=== PATIENT | male | born 1950 | race Hispanic/Latino ===

== ENCOUNTER 2024-12-08 22:02 | Emergency (ER) | payer OTHER ==
[~2024-12-08] VITALS: Ht 175.3 cm; Wt 136.1 kg
[~2024-12-08 22:02] MED LIST: ASPI-1443 PO; FAMO-136 PO; FURO20TA4 PO; GLIP5POW MC; HYDR25TA PO; HYDR50TA37 PO; LOSA-418 PO; METO50 PO; OMEP20CA12 PO; POTA20PA32 PO; SIMV10TA97 PO
--- NOTE | 2024-12-08 22:07 | NUR ---
REPORT TO MEGHAN ISLAS
--- NOTE | 2024-12-08 22:35 | ERN ---
ED Note History of Present Illness Stated Complaint: CHEST PAIN Chief Complaint: Chest Pain Time Seen by MD: 22:27 Time Seen by Midlevel: 22:30 Dictation: Mr. Banegas is a 74 year gentleman with history of atrial fibrillation, hypertension, hyperlipidemia, CVA, CAD, heart valve replacement, type 2 diabetes, CHF, GERD, and morbid obesity who presented to the emergency department this evening for evaluation of chest pain. He states that he was attending a wedding this evening when he developed anterior chest pain radiating to the back and neck and accompanied by shortness of breath. He reports chronic swelling of his lower extremities. He states that while in route to the hospital symptoms resolve. 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 He denies having any fever, chills, cough, palpitations, abdominal pain, nausea, vomiting, diarrhea, dysuria, focal weakness/paresthesia, or dizziness. PCP: Dr. Nelly Bone Campaign Director: Dr. Oral Jordan Allergies: Coded Allergies: No Known Allergies (Unverified Allergy, Unknown, 10/23/22) Home Meds Active Scripts Losartan Potassium (Cozaar) 50 Mg Tablet, 50 MG PO DAILY, #30 TAB 0 Refills Prov:ELMIRA GREEN MD 10/28/22 Metoprolol Tartrate (Lopressor 50Mg Tab) 50 Mg Tab, 50 MG PO BID, #60 TAB 0 Refills Prov:ELMIRA GREEN MD 10/28/22 Reported Medications Glipizide (Glipizide) 5 Gm Powder, 2.5 GM MC BID, APPL 10/23/22 Hydralazine HCl (Hydralazine HCl) 50 Mg Tablet, 50 MG PO QID, TAB 10/23/22 Omeprazole (Omeprazole) 20 Mg Capsule.dr, 20 MG PO DAILY, CAP 10/23/22 Hydrochlorothiazide (Hydrochlorothiazide) 25 Mg Tablet, 25 MG PO DAILY, TAB 10/23/22 Aspirin (Aspirin EC) 81 Mg Tablet.dr, 81 MG PO DAILYDINNER, TAB 10/23/22 Furosemide (Furosemide) 20 Mg Tablet, 20 MG PO DAILY, TAB 10/23/22 Famotidine (Pepcid) 20 Mg Tablet, 10 MG PO DAILY, TAB 10/23/22 Potassium Chloride (Potassium Chloride) 20 Meq Packet, 20 MEQ PO DAILY, PKT 10/23/22 Simvastatin (Simvastatin) 10 Mg Tablet, 10 MG PO DAILYDINNER, TAB 10/23/22 Past Medical History Past Medical History: A-Fib, CVA, Diabetes-Type II, High Cholesterol, Hypertension Surgical History: Other Surgical History Other: VALCE REPLACEMENT PSYCH History: no pertinent psych hx Social History: Negative, Lives with family RN Note Reviewed/Agreed w/PFSH: Yes Review of System Dictation REVIEW OF SYSTEMS: CONSTITUTIONAL: Patient denies fevers, chills, sweats and weight changes. Reports fatigue and general weakness EYES: Patient denies any visual symptoms. EARS, NOSE, AND THROAT: No difficulties with hearing. No symptoms of rhinitis or sore throat. CARDIOVASCULAR: Patient denies palpitations, orthopnea and paroxysmal nocturnal dyspnea. Reported chest pain radiating to his back and neck. RESPIRATORY:no wheezing or cough. Reported shortness of breath GI: No nausea, vomiting, diarrhea, constipation, abdominal pain, hematochezia or melena. : No urinary hesitancy or dribbling. No nocturia or urinary frequency. No abnormal urethral discharge. MUSCULOSKELETAL: No myalgias or arthralgias. Reports chronic swelling of lower extremities NEUROLOGIC: No chronic headaches, no seizures. Patient denies numbness, tingling or weakness. PSYCHIATRIC: Patient denies problems with mood disturbance. No problems with anxiety. ENDOCRINE: No excessive urination or excessive thirst. DERMATOLOGIC: Patient denies any rashes or skin changes. Initial Vital Sign VS Vital Signs Date Time Temp Pulse Resp B/P (MAP) Pulse Ox O2 Delivery O2 Flow Rate FiO2 12/08/24 22:04 98.2 105 20 236/110 96 Room Air 12/08/24 22:51 0 21 Physical Exam Dictation Vital signs: Reviewed. Afebrile Constitutional: No acute distress. Non-toxic appearing. Significant other at bedside Head/Face: Normocephalic, atraumatic. Eyes: Periorbital areas with no swelling, redness, or edema. Lids and lashes are normal. Conjunctival injection is absent. Sclera anicteric. Pupils equal, round, reactive to light. ENT: Pinnas intact and no signs of trauma or erythema. Ear canals clear and no discharge. TMs no erythema. No nasal discharge or bleeding noted. Oropharynx with no exudate, redness, swelling, masses, exudates, or evidence of obstructio n. Uvula midline. Mucous membranes moist. Missing teeth. Neck: Trachea midline, no masses palpated, and no cervical lymphadenopathy. No swelling. Supple, full range of motion. Chest/Axilla: No tenderness, no crepitus, no paradoxical movement, no retrac tions. Cardiovascular: Irregular rate, regular rhythm, no murmur, no gallops. Symmetric pulses. 2+ pedal edema Twelve lead EKG reflects a atrial fibrillation with ventricular rate 82. Hypertensive with blood pressure reading 236/110 Respiratory: Tachypneic; RR 24 lung sounds diminished in bases with slight expiratory wheeze; no rales or rhonchi. Room air SpO2 98% Gastrointestinal: Obese No distention is appreciated. Bowel sounds are normal. No mass or organomegaly . There is no tenderness. No rebound. No rigidity. No voluntary or involuntary guarding. No Bey's sign. Neurological: Normal speech, gross motor function intact, gross sensory function intact. No focal weakness/Paresthesia. Musculoskeletal/Extremities: All extremities have full range of motion, no pain or tenderness on palpation. Symmetric pulses. Integumentary: Intact. Skin is normal color, warm and dry. Cap refill less than 3 seconds. Results (Laboratory/Radiology) Laboratory/Radiology Laboratory Tests Test 12/08/24 22:27 12/08/24 22:46 12/08/24 22:58 White Blood Count 7.2 K/uL (4.8-10.8) Red Blood Count 4.33 MIL/uL (4.50-6.20) L Hemoglobin 11.7 g/dL (14.0-18.0) L Hematocrit 37.5 % (42-54) L Mean Corpuscular Volume 86.6 fL (79-99) Mean Corpuscular Hemoglobin 27.0 pg (27.0-33.0) Mean Corpuscular Hemoglobin Concent 31.2 g/dL (32.0-36.0) L Red Cell Distribution Width 18.1 % (11.0-15.5) H Platelet Count 189 K/uL (130-400) Mean Platelet Volume 11.3 fL (7.5-10.5) H Immature Granulocyte % (Auto) 0.3 % (0-1) Neutrophils (%) (Auto) 63.2 % (40.0-77.0) Lymphocytes (%) (Auto) 22.4 % (21.0-51.0) Monocytes (%) (Auto) 10.2 % (3.0-13.0) Eosinophils (%) (Auto) 3.1 % (0.0-8.0) Basophils (%) (Auto) 0.8 % (0.0-5.0) Neutrophils # (Auto) 4.5 K/uL (1.8-7.7) Lymphocytes # (Auto) 1.6 K/uL (1.0-4.8) Monocytes # (Auto) 0.7 K/uL (0.1-1.0) Eosinophils # (Auto) 0.22 K/uL (0.00-0.70) Basophils # (Auto) 0.06 K/uL (0.00-0.20) Absolute Immature Granulocyte (auto 0.02 K/uL (0-1) Nucleated Red Blood Cells 0.0 % (0.0-0.19) Red Blood Cell Morphology See comments Sodium Level 141 mmol/L (136-145) Potassium Level 3.7 mmol/L (3.5-5.1) Chloride Level 107 mmol/L (101-111) Carbon Dioxide Level 29 mmol/L (21-32) Blood Urea Nitrogen 24 mg/dL (7-18) H Creatinine 1.4 mg/dL (0.5-1.3) H Glomerular Filtration Rate Calc 52 mL/min (>90) Random Glucose 122 mg/dL (70-105) H Total Calcium 8.8 mg/dL (8.5-10.1) Total Creatine Kinase 119 U/L (21-232) Troponin I High Sensitivity 16 ng/L (4-75) B-Type Natriuretic Peptide 138 pg/mL (0-100) H Urine Color LIGHT-YELLOW (YELLOW) Urine Appearance CLEAR (CLEAR) Urine pH 5.5 (5.0-8.0) Urine Specific [place] 1.015 (1.001-1.031) Urine Protein 30 mg/dL (NEGATIVE) H Urine Glucose (UA) >=1000 mg/dL (NEGATIVE) H Urine Ketones NEGATIVE mg/dL (NEGATIVE) Urine Occult Blood NEGATIVE (NEGATIVE) Urine Nitrate NEGATIVE (NEGATIVE) Urine Bilirubin NEGATIVE mg/dL (NEGATIVE) Urine Urobilinogen 0.2 mg/dL (0.2-1.0) Urine Leukocyte Esterase NEGATIVE Edita/uL Urine RBC 2-5 /HPF (0-1) H Urine WBC 0-1 /HPF (0-1) Urine Squamous Epithelial Cells RARE /HPF (0-2) Urine Bacteria None /HPF (None Seen) Troponin I < 0.05 ng/mL (0.00-0.05) Labs Reviewed?: Yes EKG Comment: EKG Interpretation: Time Reviewed: 2201 Ventricular rate: 82 bpm NV Interval: [] ms QRS duration: [address] segment elevation or depression. Clinical impression: Atrial fibrillation EKG Reviewed and interpreted by Dr. Rosie Chicas EKG Interpretation: Time Reviewed: 32 Ventricular rate: 91 bpm NV Interval: QRS duration: [address] segment elevation or depression. Clinical impression: Atrial fibrillation EKG Reviewed and interpreted by Dr. Rosie Chicas X-RAY Comment: PATIENT: SHAWANDA BANEGAS MR#: [id number] : 1950 SEX: M AGE: 74 LOCATION: [facility] ORDER 04 STATUS: REG ER REPORT#: [id number] SERVICE 03 REASON: CHEST PAIN ORDERING PHYSICIAN: KENRICK CHICAS MD PROCEDURE: CXR1VW - CHEST 1VW CHEST 1VW HISTORY: Chest pain COMPARISON: 10/22/2022 FINDINGS: A frontal projection of the chest was obtained. Elevation of left hemidiaphragm is again seen. Prominent interstitial markings are seen with possible superimposed infiltrates. The heart is borderline enlarged. No evidence of aortic calcification is seen. IMPRESSION: 1. Prominent interstitial markings are seen with possible superimposed infiltrates. DICTATED BY: CUAUHTEMOC DUKE MD DATE: 12/08/242256 ELECTRONICALLY SIGNED BY: CUAUHTEMOC DUKE MD DATE: 12/08/242300 ED Course ED Course Orders Procedure Category Date Status Time Vital Signs Per CPOE 12/08/24 Transmitted Routine 22:04 B-Type Natriuretic LAB 12/08/24 Complete Peptide 22:04 Chest 1vw RAD 12/08/24 Resulted 22:04 12 Lead Ekg Tracing- EKG 12/08/24 Logged Technical 22:04 Oxygen By Nc/Pulse Ox CPOE 12/08/24 Transmitted 22:04 Maintain Iv CPOE 12/08/24 Transmitted 22:04 Iv Insertion CPOE 12/08/24 Transmitted 22:04 Cardiac Monitoring CPOE 12/08/24 Transmitted 22:04 Pulse Oximetry With CPOE 12/08/24 Transmitted Vs And Prn 22:04 Cbc With Differential LAB 12/08/24 Complete 22:04 Activity: Br W/Brp CPOE 12/08/24 Transmitted With Assist 22:04 Creatine Kinase, Total LAB 12/08/24 Complete 22:04 Troponin I High LAB 12/08/24 Complete Sensitivity 22:04 Urinalysis Profile LAB 12/08/24 Complete 22:04 Troponin Poc Order LAB 12/08/24 Complete Only 22:04 Bedside Troponin-I LAB.ER 12/08/24 In Process (Poc) 22:04 Basic Metabolic Panel LAB 12/08/24 Complete 22:04 Troponin I High LAB 12/09/24 In Process Sensitivity 00:30 12 Lead Ekg Tracing- EKG 12/09/24 Complete Technical 00:30 Vital Signs Date Time Temp Pulse Resp B/P (MAP) Pulse Ox O2 Delivery O2 Flow Rate FiO2 12/09/24 00:41 98.4 82 18 144/58 98 Room Air* 0 21 12/08/24 22:51 97.9 78 18 149/63 97 Room Air* 0 21 12/08/24 22:04 98.2 105 20 236/110 96 Room Air Uneventful ED course. Initial blood pressure was elevated to 236/110 but repeat measurements all normotensive. Twelve lead EKG performed x2 reveals atrial fibrillation per baseline with ventricular rates 60-80; no ST elevation or depression. Laboratory findings as noted below H&H are stable 11.7/37.5, BUN/CR 24/1.4, glucose 122, and BNP 138. UA positive for protein and glucose. Troponin x2 are negative. He has been chest pain-free and denies shortness of breath or concerns throughout stay. Findings were discussed with patient and his significant other. He was provided with copies of his EKGs, chest x-ray report, and labs. He will follow up with his PCP early next week. HEART Score Response (Comments) Value History: Moderate suspicion (+1) 1 EKG: Normal 0 Age: > 65yrs (+2) 2 Risk Factors: 3+ risk factors (+2) 2 Initial Troponin: Normal limit (0) 0 HEART Score Risk: Mod Risk for MACE (4-6) Total 5 Medical Decision Making MDM MDM: Differential diagnosis: ACS, CAP, anxiety Rationale: Tests considered and ordered secondary to shared decision making include: EKG, LABS, CXR Previous outside records reviewed: Old ER visits. Risk of complication and/or morbidity or mortality of patient management: None Medications-Per medication reconciliation Need for hospitalization: Patient does not meet criteria for hospitalization. Need for emergency major/minor surgery: No There are no social concerns with this patient. Prescription drug management: N/A; continue home medications Prescriptions will include symptomatic care Patient's prior external medical records from other ER visits were reviewed by me as indicated. Prior testing and results from previous visits were reviewed. Prior tests were taken into account with medical decision making and resource utilization, independent historian/historians were used to obtain complete medical history. I independently interpreted the test that were performed, results were reviewed by me and considered findings on radiology if ordered. Medical management and examination interpretation discussions were had by me with other qualified healthcare professionals as indicated for the patient's car e. DX & DISP Disposition: Discharge Departure Impression: Primary Impression: Chest pain Additional Impression: Hypertension Condition: Stable Additional Instructions: Rest. Keep log of all symptoms. Keep log of blood pressure readings. Continue all home medications. Follow up with Dr.Luna Bone early next week; take copies of your labs/EKGs/CXR. Please return to the emergency department for any worsening of symptoms or concerns. Referrals: ORAL JORDAN MD, CYNTHIA N MD Time of Disposition: 00:49 JACINDA CROWELL NP Dec 08, 2024 22:35
[2024-12-08 22:44] LABS: BASOPHILS # (AUTO) 0.06 K/uL (0.00-0.20); BASOPHILS % (AUTO) 0.8 % (0.0-5.0); EOSINOPHILS # (AUTO) 0.22 K/uL (0.00-0.70); EOSINOPHILS % (AUTO) 3.1 % (0.0-8.0); HEMATOCRIT 37.5 % (42-54); IMMATURE GRANULOCYTE ABSOLUTE 0.02 K/uL (0-1); LYMPHOCYTES # (AUTO) 1.6 K/uL (1.0-4.8); LYMPHOCYTES % (AUTO) 22.4 % (21.0-51.0); MEAN CORPUSCULAR HGB CONC 31.2 g/dL (32.0-36.0); MEAN CORPUSCULAR VOLUME 86.6 fL (79-99); MONOCYTES # (AUTO) 0.7 K/uL (0.1-1.0); MONOCYTES % (AUTO) 10.2 % (3.0-13.0); NEUTROPHILS # (AUTO) 4.5 K/uL (1.8-7.7); NEUTROPHILS % (AUTO) 63.2 % (40.0-77.0); PLATELET COUNT (AUTO) 189 K/uL (130-400); RED BLOOD CELL COUNT(AUTO) 4.33 MIL/uL (4.50-6.20); RED CELL DISTRIBUTION WIDTH 18.1 % (11.0-15.5); WHITE BLOOD COUNT (AUTO) 7.2 K/uL (4.8-10.8)
[2024-12-08 23:00] LABS: CREATININE 1.4 mg/dL (0.5-1.3); POTASSIUM 3.7 mmol/L (3.5-5.1)
--- NOTE | 2024-12-08 23:01 | HMCIMG ---
CHEST 1VW HISTORY: Chest pain COMPARISON: 10/22/2022 FINDINGS: A frontal projection of the chest was obtained. Elevation of left hemidiaphragm is again seen. Prominent interstitial markings are seen with possible superimposed infiltrates. The heart is borderline enlarged. No evidence of aortic calcification is seen. IMPRESSION: 1. Prominent interstitial markings are seen with possible superimposed infiltrates.
[2024-12-08 23:08] LABS: APPEARANCE,URINE CLEAR (CLEAR); BILIRUBIN,URINE NEGATIVE (NEGATIVE); COLOR,URINE LIGHT-YELLOW (YELLOW); GLUCOSE, URINE (UA) >=1000 mg/dL (NEGATIVE); KETONES,URINE NEGATIVE (NEGATIVE); LEUKOCYTE ESTERASE ,URINE NEGATIVE Leu/uL (NEGATIVE); NITRATE,URINE NEGATIVE (NEGATIVE); OCCULT BLOOD,URINE NEGATIVE (NEGATIVE); PH,URINE 5.5 (5.0-8.0); PROTEIN,URINE 30 mg/dL (NEGATIVE); UROBILINOGEN,URINE 0.2 mg/dL (0.2-1.0)
[2024-12-08 23:09] LABS: ADD UA MICROSCOPIC YES
[2024-12-08 23:14] LABS: SQUAMOUS EPITHELIAL CELL,UR RARE /HPF (0-2); WBC,URINE 0-1 /HPF (0-1)
[2024-12-08 23:25] LABS: B-TYPE NATRIURETIC PEPTIDE 138 pg/mL (0-100)
--- NOTE | 2024-12-09 00:40 | EKG ---
[facility] Test Date: 2024-12-09 Test Time: 00:33:40 Pat Name: SHAWANDA ALVA Department: [facility] Room: Gender: M Bookkeeping Manager: [id number] : 1950 Requested By: KENRICK PADRON Order Number: [id number] Reading MD: Geraldo Pacheco Measurements Intervals [place] Rate: 91 P: 0 DC: 0 QRS: 91 QRSD: 102 T: 2 QT: 387 QTc: 477 Interpretive Statements Atrial fibrillation Right axis deviation Anteroseptal infarct, old Compared to ECG 10/27/2022 21:34:55 Right-axis deviation now present Myocardial infarct finding now present Electronically Signed On 12-10-2024 16:03:36 HOUSEHOLD APPLIANCE ASSEMBLER by Geraldo Pacheco Please click the below link to view image of tracing.
[2024-12-09 00:41] VITALS: TEMP 98.5
[2024-12-09 01:32] VITALS: BP 131/67; PULSE 85; RESP 18; O2SAT 97
--- NOTE | 2024-12-09 01:32 | EKG ---
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
== END 2024-12-09 01:48 | disposition home or self-care (01) ==
LOC: EDH 22:02
DX: R07.89 Other chest pain (principal); I10 Essential (primary) hypertension; I48.91 Unspecified atrial fibrillation; E11.9 Type 2 diabetes mellitus without complications; E78.00 Pure hypercholesterolemia, unspecified; Z79.84 Long term (current) use of oral hypoglycemic drugs; Z79.899 Other long term (current) drug therapy; Z86.73 Personal history of transient ischemic attack (TIA), and cerebral infarction without residual deficits
CPT/HCPCS: 36415; 71045; 80048; 81001; 82550; 83880; 84484; 85025; 93005; 99284

== ENCOUNTER 2025-06-08 12:23 | Emergency (ER) | payer OTHER ==
[~2025-06-08] VITALS: Ht 175.3 cm; Wt 138.3 kg
[2025-06-08] MEDS: ORPHENADRINE 60MG/2ML IM ONE (12:55)
--- NOTE | 2025-06-08 13:00 | ERN ---
ED Note History of Present Illness Stated Complaint: RIGHT LEG PAIN Chief Complaint: Lower Extremity Pain/Injury Time Seen by MD: 12:24 Time Seen by Midlevel: 12:24 Dictation: The patient is a see showed male with a history of AFib on Eliquis, hyperlip idemia, hypertension who presents to the emergency department with nontraumatic right hip pain that radiates down his right leg onset a week ago. Patient reports pain is a by his right buttocks. Denies any numbness to lower extremities, denies any urinary or fecal incontinence. Denies any fevers or any other associated symptoms. Allergies: Coded Allergies: No Known Allergies (Unverified Allergy, Unknown, 10/23/22) Home Meds Active Scripts Hydrocodone/Acetaminophen (Hydrocodon-Acetaminoph 7.5-325) 7.5 Mg-325 Mg Tablet, 1 EACH PO TID PRN for PAIN for 10 Days, #20 TAB Prov:CATINA MARIN DO 06/08/25 Hydrocodone/Acetaminophen (Hydrocodon-Acetaminophen 5-325) 5 Mg-325 Mg Tablet, 1 TAB PO [id number] PRN for pain for 5 Days, #10 TAB 0 Refills Prov:ELIZABETH BERMAN 06/08/25 Meloxicam (Meloxicam) 7.5 Mg Tablet, 1 TAB PO DAILY for 10 Days, #10 TAB 0 Refills Prov:ELIZABETH BERMAN 06/08/25 Losartan Potassium (Cozaar) 50 Mg Tablet, 50 MG PO DAILY, #30 TAB 0 Refills Prov:ELMIRA GREEN MD 10/28/22 Metoprolol Tartrate (Lopressor 50Mg Tab) 50 Mg Tab, 50 MG PO BID, #60 TAB 0 Refills Prov:ELMIRA GREEN MD 10/28/22 Reported Medications Glipizide (Glipizide) 5 Gm Powder, 2.5 GM MC BID, APPL 10/23/22 Hydralazine HCl (Hydralazine HCl) 50 Mg Tablet, 50 MG PO QID, TAB 10/23/22 Omeprazole (Omeprazole) 20 Mg Capsule.dr, 20 MG PO DAILY, CAP 10/23/22 Hydrochlorothiazide (Hydrochlorothiazide) 25 Mg Tablet, 25 MG PO DAILY, TAB 10/23/22 Aspirin (Aspirin EC) 81 Mg Tablet.dr, 81 MG PO DAILYAGUSTINA TAB 10/23/22 Furosemide (Furosemide) 20 Mg Tablet, 20 MG PO DAILY, TAB 10/23/22 Famotidine (Pepcid) 20 Mg Tablet, 10 MG PO DAILY, TAB 10/23/22 Potassium Chloride (Potassium Chloride) 20 Meq Packet, 20 MEQ PO DAILY, PKT 10/23/22 Simvastatin (Simvastatin) 10 Mg Tablet, 10 MG PO DAILYDINNER, TAB 10/23/22 Past Medical History Past Medical History: A-Fib, CVA, Diabetes-Type II, High Cholesterol, Hypertension Surgical History: Other Surgical History Other: VALCE REPLACEMENT Social History: Negative, Lives with family RN Note Reviewed/Agreed w/PFSH: Yes Review of System Dictation Constitutional: Negative for fever,chills, and weight loss Eyes: Negative for injury, pain,redness, and discharge ENT: Negative for injury,pain or swelling Cardiovascular: Negative for chest pain, palpitations, and edema Respiratory: Negative for shortness of breath, cough, and wheezing, Abdomen/GI: Negative for abdominal pain, nausea, vomiting, diarrhea, and constipation Back: Negative for injury and pain : Negative for injury, bleeding and discharge MS/Extremity: Positive for right hip pain Skin: Negative for rash, and discoloration Neuro: Negative for headache, weakness, numbness, tingling, and seizure Psych: Negative for suicide ideation, homicidal ideation, and hallucinations Initial Vital Sign VS Vital Signs Date Time Temp Pulse Resp B/P (MAP) Pulse Ox O2 Delivery O2 Flow Rate FiO2 06/08/25 12:24 98.1 70 16 156/76 96 Room Air 06/08/25 15:07 0 21 Physical Exam Dictation Vital Signs reviewed General Appearance: Alert, oriented x 3, no acute distress, well developed, nourished. Head and Face: non-traumatic. Eyes: PERRL, pink conjunctivas, eyelid no trauma, anterior chamber with arcus senilis. Ears: Pinnas intact and no signs of trauma or erythema ear canals clear and no discharge TM no erythema Nose: No discharge, no bleeding. Oropharynx: Mouth normal, tongue pink. pharynx clear,no erythema, tonsils no exudates, no abscesses noted, mucous membrane moist Neck: Supple, non-tender, no thyromegaly, no masses, no JVD, no bruits Breast:Deferred Chest:No tenderness, no crepitus, no paradoxical movement, no retractions Lungs:Clear, well-ventilated, symmetric, no rales, no wheezing, no rhonchi, no stridor, good breath sounds bilaterally Heart: Regular rate, regular rhythm, no murmur, no gallops Vascular: no peripheral edema, Abdomen: Soft, positive bowel sounds, nondistended, no guarding, nontender, no rebound, no masses no hepatomegaly, no splenomegaly, no Bey's sign, no hernias. Rectal: Deferred Genital: Deferred Neurological: Normal speech, motor function intact, sensory function intact Musculoskeletal: Neck nontender, full range of motion, back nontender, full range of motion, Extremities: nontender, full range of motion Skin: Color pink, dry, no turgor, no rash, no lacerations, no abrasions, no contusions. Lymphatic: Deferred Results (Laboratory/Radiology) Laboratory/Radiology REASON: pain ORDERING PHYSICIAN: ELIZABETH BERMAN TUBE MAKING MACHINE OPERATOR PROCEDURE: HIP U 2V R - HIP UNILAT 2-3VW RIGHT EXAM: CR right Hip, 2 View. CLINICAL HISTORY: pain COMPARISON: None provided. FINDINGS: Study limited by overlying soft tissues. BONES: No acute fracture or aggressive appearing osseous lesion. JOINTS: No dislocation. Moderate degenerative changes. SOFT TISSUES: The soft tissues are unremarkable. IMPRESSION: No fracture or dislocation of the right hip. Moderate degenerative change. /[place] Labs Reviewed?: Yes ED Course ED Course Orders Procedure Category Date Status Time Orphenadrine Citrate PHA 06/08/25 Complete (Norflex) 13:00 Triamcinolone Acet PHA 06/08/25 Complete 40mg/Ml 1ml (Kenalog 13:00 Hip Unilat 2-3vw Right RAD 06/08/25 Resulted 12:45 Current Medications Medications (Trade) Dose Ordered Sig/Tracee Route PRN Reason Start Time Stop Time Status Last Admin Dose Admin Orphenadrine Citrate (Norflex) 60 mg ONCE ONCE IM 06/08/25 13:00 06/08/25 13:01 DC 06/08/25 12:55 Triamcinolone Acetonide (Kenalog 40) 40 mg ONCE ONCE IM 06/08/25 13:00 06/08/25 13:01 DC 06/08/25 13:06 Vital Signs Date Time Temp Pulse Resp B/P (MAP) Pulse Ox O2 Delivery O2 Flow Rate FiO2 06/08/25 15:07 98.1 70 16 141/73 96 Room Air* 0 21 06/08/25 12:24 98.1 70 16 156/76 96 Room Air Medical Decision Making MDM The patient is a see showed male with a history of AFib on Eliquis, hyperlipidemia, hypertension who presents to the emergency department with nontraumatic right hip pain that radiates down his right leg onset a week ago. Patient reports pain is a by his right buttocks. Denies any numbness to lower extremities, denies any urinary or fecal incontinence. Denies any fevers or any other associated symptoms. X-ray showed no acute fractures or dislocation, moderate degenerative changes. Patient reports improving in pain. Patient has symptoms consistent with sciatic nerve pain. Patient otherwise neurovascularly intact. On physical exam patient is in no acute distress, Patient will be discharged to follow up with the PCP Differential diagnosis: Sciatic nerve pain, hip fracture, osteoarthritis Need for hospitalization: Patient does not meet criteria for hospitalization. There are no social concerns with this patient. DX & DISP Disposition: Discharge Departure Impression: Primary Impression: Right sciatic nerve pain Condition: Stable Scripts Hydrocodone/Acetaminophen (Hydrocodon-Acetaminoph 7.5-325) 7.5 Mg-325 Mg Tablet 1 EACH PO TID PRN for PAIN for 10 Days, #20 TAB Prov: CATINA MARIN DO 06/08/25 Hydrocodone/Acetaminophen (Hydrocodon-Acetaminophen 5-325) 5 Mg-325 Mg Tablet 1 TAB PO [id number] PRN for pain for 5 Days, #10 TAB 0 Refills Prov: ELIZABETH BERMAN 06/08/25 Meloxicam (Meloxicam) 7.5 Mg Tablet 1 TAB PO DAILY for 10 Days, #10 TAB 0 Refills Prov: ELIZABETH BERMAN 06/08/25 Additional Instructions: Your x-ray did not show any fractures or dislocations. Your symptoms are consistent with sciatic nerve pain. Please take your medications as prescribed. To be careful with the pain medications because they can cause drowsiness. Do not allow the patient to ambulate without any assistance. If anything worsens please return to ER. FOLLOW-UP WITH PRIMARY CARE PROVIDER IN 1 TO 2 DAYS. TAKE MEDICATIONS DIRECTED HERE IN THE EMERGENCY ROOM. OKAY TO CONTINUE HOME MEDICATIONS UNLESS OTHERWISE DISCUSSED DURING YOUR VISIT IN THE EMERGENCY ROOM TODAY. RETURN TO YOUR NEAREST EMERGENCY ROOM IF SYMPTOMS WORSEN OR IF THERE IS NO IMPROVEMENT. CALL 911 IF YOU NEED IMMEDIATE ASSISTANCE. TAKE TYLENOL [id number] NEEDED AND IF NO CONTRAINDICATIONS ARE PRESENT. INCREASE ORAL HYDRATION. A WOUND CULTURE OR URINE CULTURE WAS ORDERED HERE IN THE EMERGENCY ROOM DEPARTMENT PLEASE FOLLOW-UP WITH PRIMARY CARE PROVIDER AND ADVISE THEM TO GET REPEAT PORTS FROM OUR FACILITY. IF YOU HAD ANY OSVALDO WRAP/SPLINTS THAT WERE APPLIED HERE, PLEASE DO NOT REMOVE THEM UNTIL YOU SEE YOUR PRIMARY CARE OR SPECIALTY. Referrals: ESCOBAR DOMINGUEZ MD (PCP) Time of Disposition: 14:51 I have reviewed the case, and I agree with, Diagnosis and Plan ELIZABETH BERMAN Jun 08, 2025 13:00 CATINA MARIN DO Jun 08, 2025 17:27
[2025-06-08] MEDS: TRIAMCINOLONE ACETONIDE 40 MG/ML 1ML VIAL IM ONE (13:06)
--- NOTE | 2025-06-08 14:15 | HMCIMG ---
EXAM: CR right Hip, 2 View. CLINICAL HISTORY: pain COMPARISON: None provided. FINDINGS: Study limited by overlying soft tissues. BONES: No acute fracture or aggressive appearing osseous lesion. JOINTS: No dislocation. Moderate degenerative changes. SOFT TISSUES: The soft tissues are unremarkable. IMPRESSION: No fracture or dislocation of the right hip. Moderate degenerative change. /[place]
[2025-06-08] MEDS ORDERED: MELO-106 PO (15:02)
[2025-06-08] MEDS ORDERED: HYDR-4060 PO (15:02)
[2025-06-08 15:07] VITALS: BP 141/73; PULSE 70; RESP 16; TEMP 98; O2SAT 96
[2025-06-08] MEDS ORDERED: HYDR-4064 PO (16:12)
== END 2025-06-08 15:09 | disposition home or self-care (01) ==
LOC: EDH 12:23
DX: M54.31 Sciatica, right side (principal); E11.9 Type 2 diabetes mellitus without complications; E78.00 Pure hypercholesterolemia, unspecified; I10 Essential (primary) hypertension; I48.91 Unspecified atrial fibrillation; Z79.1 Long term (current) use of non-steroidal anti-inflammatories (NSAID); Z79.84 Long term (current) use of oral hypoglycemic drugs; Z79.899 Other long term (current) drug therapy; Z86.73 Personal history of transient ischemic attack (TIA), and cerebral infarction without residual deficits
CPT/HCPCS: 99283; 73502; 96372 ×2; J3301; J2360